=== PATIENT | male | born 1975 | race Caucasian/White ===

== ENCOUNTER 2018-04-22 11:17 | Emergency (ER) | payer OTHER ==
[2018-04-22] MEDS ORDERED: MORPHINE 4 MG/ML SYR ONE (12:55)
[2018-04-22] MEDS ORDERED: DEXAMETHASONE 10 MG/ML VIAL ONE (12:55)
[2018-04-22] MEDS ORDERED: DIAZEPAM 5 MG TABLET ONE (12:55)
[2018-04-22] MEDS ORDERED: NA CHLORIDE 0.9% 0 ML ONE (12:56)
[2018-04-22] MEDS ORDERED: ONDANSETRON 4 MG/2 ML VIAL ONE (12:56)
[2018-04-22] MEDS ORDERED: KETOROLAC 30 MG/ML INJ ONE (12:56)
--- NOTE | 2018-04-22 13:16 | RAD REPORT ---
EXAM DESCRIPTION: CT - Spine Lumbar Wo Con - 04/22/2018 1:02 pm CLINICAL HISTORY: Trauma, back pain, radiculopathy. COMPARISON: None. TECHNIQUE: Axial noncontrast CT imaging of the lumbar spine was performed with coronal and sagittal re-formatted images. All CT scans are performed using dose optimization technique as appropriate and may include automated exposure control or mA/KV adjustment according to patient size. FINDINGS: No acute lumbar spine fracture seen. Degenerative changes present at the L5-S1 level with 4 mm anterolisthesis present. Prominent posterior element hypertrophy is noted with posterior disc bu lge at L4-5. Hardware is seen spanning the L5-S1 level with laminectomy defects. No hardware complica tion evident. Paraspinal tissues are normal in thickness. No paraspinal abscess or hematoma seen. Central canal stenosis at L4-5 suspected. IMPRESSION: Postsurgical lumbar spine is noted without acute abnormality seen. Significant central canal stenosis suspected at L4-5 suspected.
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
[2018-04-22 13:49] VITALS: BP 130/90; O2SAT 96
== END 2018-04-22 13:39 | disposition home or self-care (01) ==
LOC: ER 11:17
DX: M48.07 Spinal stenosis, lumbosacral region (principal); F17.210 Nicotine dependence, cigarettes, uncomplicated
CPT/HCPCS: 72131; 99284; J1100; J2405; J7030

== ENCOUNTER 2018-07-26 17:01 | Emergency (ER) | payer OTHER ==
[2018-07-26] MEDS ORDERED: TETANUS & DIPHTHERIA TOX,ADULT 0.5 ML VIAL ONE (17:37)
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
--- NOTE | 2018-07-26 18:21 | RAD REPORT ---
EXAM DESCRIPTION: RAD - Foot Right 3 View - 07/26/2018 5:54 pm CLINICAL HISTORY: Right foot pain status post injury FINDINGS: No fracture or dislocation is seen A 2.7 millimeter curvilinear density overlies the plantar subcutaneous of the forefoot which may repr esent a foreign body and should be correlated clinically
--- NOTE | 2018-07-26 18:22 | RAD REPORT ---
EXAM DESCRIPTION: RAD - Foot Left 3 View - 07/26/2018 5:54 pm CLINICAL HISTORY: Left Foot pain status post injury FINDINGS: No fracture or dislocation is seen. A radiopaque foreign body is not seen
[2018-07-26 18:43] VITALS: TEMP 98.6; O2SAT 100
[2018-07-26 18:44] VITALS: BP 110/80
== END 2018-07-26 18:38 | disposition home or self-care (01) ==
LOC: ER 17:01
DX: S90.812A Abrasion, left foot, initial encounter (principal); S90.811A Abrasion, right foot, initial encounter; W25.XXXA Contact with sharp glass, initial encounter; Y93.89 Activity, other specified; Y92.019 Unspecified place in single-family (private) house as the place of occurrence of the external cause
CPT/HCPCS: 90714; 99284